=== PATIENT | female | born 1985 | race Caucasian/White ===

== ENCOUNTER 2017-07-21 17:54 | Emergency (ER) | payer OTHER ==
[~2017-07-21] VITALS: Ht 172.7 cm; Wt 96.6 kg
[2017-07-21 18:03] VITALS: BP 144/71; Ht 172.7 cm; Wt 96.6 kg
== END 2017-07-21 18:57 | disposition home or self-care (01) ==
LOC: ED 17:54
DX: B34.9 Viral infection, unspecified (principal)